=== PATIENT | male | born 1980 | race American Indian/Alaskan Native ===

== ENCOUNTER 2018-03-26 10:58 | Emergency (ER) | payer SELFPAY ==
[2018-03-26 11:02] VITALS: BP 146/97
--- NOTE | 2018-03-26 11:24 | Emergency Department Report ---
ED ENT HPI - General Chief complaint: Dental/Oral Stated complaint: DENTAL PAIN Time Seen by Provider: 03/26/18 11:14 Source: patient, family Mode of arrival: Ambulatory Limitations: No Limitations - History of Present Illness MD complaint: tooth pain Onset/Timin -: week(s) - Related Data Previous Rx's Medication Instructions Recorded Last Taken Type Acetaminophen/Codeine [Tylenol 1 tab PO Q6H PRN #14 tab 03/26/18 Unknown Rx /Codeine # 3 tab] Ibuprofen [Motrin] 600 mg PO Q8H PRN #12 tablet 03/26/18 Unknown Rx Penicillin V Potassium 500 mg PO Q8H 10 Days #30 tablet 03/26/18 Unknown Rx Allergies Allergy/AdvReac Type Severity Reaction Status Date / Time No Known Allergies Allergy Unverified 03/26/18 11:01 ED Dental HPI - General Chief complaint: Dental/Oral Stated complaint: DENTAL PAIN Time Seen by Provider: 03/26/18 11:14 Source: patient Mode of arrival: Ambulatory Limitations: No Limitations - Related Data Previous Rx's Medication Instructions Recorded Last Taken Type Acetaminophen/Codeine [Tylenol 1 tab PO Q6H PRN #14 tab 03/26/18 Unknown Rx /Codeine # 3 tab] Ibuprofen [Motrin] 600 mg PO Q8H PRN #12 tablet 03/26/18 Unknown Rx Penicillin V Potassium 500 mg PO Q8H 10 Days #30 tablet 03/26/18 Unknown Rx Allergies Allergy/AdvReac Type Severity Reaction Status Date / Time No Known Allergies Allergy Unverified 03/26/18 11:01 ED Review of Systems ROS: Stated complaint: DENTAL PAIN Other details as noted in HPI Constitutional: denies: chills, fever Eyes: eye pain. denies: eye discharge ENT: dental pain. denies: ear pain, throat pain Respiratory: denies: cough, shortness of breath, SOB with exertion, SOB at rest , stridor, wheezing Cardiovascular: denies: chest pain, palpitations, edema, syncope Gastrointestinal: denies: nausea, vomiting Genitourinary: denies: urgency, dysuria Musculoskeletal: denies: back pain, joint swelling, arthralgia Skin: denies: rash, lesions Neurological: denies: headache ED Past Medical Hx - Past Medical History Previous Medical History?: No - Surgical History Past Surgical History?: No - Family History Family history: hypertension - Social History Smoking Status: Current Every Day Smoker Substance Use Type: Alcohol, Marijuana - Medications Home Medications: Home Medications Medication Instructions Recorded Confirmed Last Taken Type Acetaminophen/Codeine [Tylenol 1 tab PO Q6H PRN #14 tab 03/26/18 Unknown Rx /Codeine # 3 tab] Ibuprofen [Motrin] 600 mg PO Q8H PRN #12 tablet 03/26/18 Unknown Rx Penicillin V Potassium 500 mg PO Q8H 10 Days #30 tablet 03/26/18 Unknown Rx ED Physical Exam - General Limitations: No Limitations General appearance: alert, in no apparent distress - Head Head exam: Present: atraumatic, normocephalic - Eye Eye exam: Present: normal appearance, PERRL, EOMI. Absent: conjunctival injection Pupils: Present: normal accommodation - ENT ENT exam: Present: normal orophraynx, mucous membranes moist, TM's normal bilaterally, normal external ear exam, other (nasal mucosa normal). Absent: normal exam - Expanded ENT Exam Expanded Ear exam: Present: normal external inspection Mouth exam: Present: normal external inspection Teeth exam: Present: dental caries, fractured tooth # (#15), dental tenderness # (#15), gingival enlargement 1 - Fractured (fracture), Dental Tenderness (left upper back tooth), Other ( left facial swelling) Throat exam: Positive: normal inspection - Neck Neck exam: Present: normal inspection, full ROM. Absent: tenderness, lymphadenopathy - Respiratory Respiratory exam: Present: normal lung sounds bilaterally. Absent: respiratory distress, chest wall tenderness - Cardiovascular Cardiovascular Exam: Present: regular rate, normal rhythm, normal heart sounds. Absent: systolic murmur, diastolic murmur - GI/Abdominal GI/Abdominal exam: Present: soft, normal bowel sounds. Absent: distended, tenderness, guarding, rigid - Extremities Exam Extremities exam: Present: normal inspection, full ROM, normal capillary refill , other (ambulates without any difficulties). Absent: tenderness, pedal edema, joint swelling, calf tenderness - Neurological Exam Neurological exam: Present: alert, oriented X3, normal gait - Psychiatric Psychiatric exam: Present: normal affect, normal mood - Skin Skin exam: Present: warm, dry, intact, normal color. Absent: rash ED Course Vital Signs 03/26/18 11:01 Temperature 98.5 F Pulse Rate 86 Respiratory 18 Rate Blood Pressure 146/97 O2 Sat by Pulse 99 Oximetry - Reevaluation(s) Reevaluation #1: 03/26/18 12:24 Clindamycin 600 mg by mouth, Motrin 800 mg by mouth and [place] 5/325 2 tablets by mouth in the emergency room. Voice relief of pain. ED Medical Decision Making - Medical Decision Making This is a 37-year-old male here report that he is having left upper back tooth pain for 2 weeks. He reports facial swelling without any fever. No other complaints he is here to be evaluated. Patient was examined by myself and found to have gingivitis, tooth #15 with partial fracture without any palpable exposure, dental caries and tenderness return to #15. Positive cellulitis to left upper back tooth at 15 for left facial swelling. Patient was given pain medication and antibiotic and this pain is present. I discussed the patient that he needs to follow-up with a dentist to correct the underlying problem. He voiced understanding. A/P Gingivitis, dental abscess-referral to dentist. Started an antibiotic clindamycin 600 mg by mouth and was sent home on penicillin Dental caries, toothache-patient given Motrin 800 mg by mouth and 5/325 mg by mouth 6 tablets emergency room with positive relief. Was sent home in Motrin and Tylenol 3 Fracture tooth #15, partial-referral to dentist Patient discharged home in stable condition with prescription for Tylenol No. 3 Motrin and penicillin V. Vital signs are stable he is afebrile and pain is controlled. Patient referred to [facility] which she is supposed to call tomorrow to schedule an appointment for follow-up visit to fix the underlying problem and 3-5 days and he voiced understanding. Discharged home with his family in stable condition. 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 ED Disposition Clinical Impression: Dental abscess, Toothache, Gingivitis, Dental caries Fracture, tooth Qualifiers: Encounter type: initial encounter Fracture type: closed Qualified Code(s): S02.5XXA - Fracture of tooth (traumatic), initial encounter for closed fracture Disposition: DC-01 TO HOME OR SELFCARE Is pt being admited?: No Does the pt Need Aspirin: No Condition: Stable Instructions: Dental Caries (ED), Dental Abscess (ED), Toothache (ED), Gingivitis (ED) Additional Instructions: Please follow up with dentist as discussed. See alternative dentist and discharge instruction paperwork if needed. Take Motrin for mild to moderate pain and please take this medication with food. Take Tylenol #3, for severe pain and please do not drive or operate heavy machinery while taking this medication. Take penicillin V as prescribed. Please see floss twice daily Gargle with Listerine mouthwash twice daily Prescriptions: Acetaminophen/Codeine [Tylenol /Codeine # 3 tab] 1 tab PO Q6H PRN #14 tab PRN Reason: moderate to severe pain Ibuprofen [Motrin] 600 mg PO Q8H PRN #12 tablet PRN Reason: Pain Penicillin V Potassium 500 mg PO Q8H 10 Days #30 tablet Referrals: PRIMARY CARE, [Primary Care Provider] - 3-5 Days [facility] [Outside] - 3-5 Days Forms: Accompanied Note, Work/School Release Form(ED)
[2018-03-26] MEDS ORDERED: NORCO 5/325 PO ONE (11:51)
[2018-03-26] MEDS ORDERED: CLEOCIN PO ONE (11:51)
[2018-03-26] MEDS ORDERED: MOTRIN PO ONE (11:51)
== END 2018-03-26 12:49 | disposition home or self-care (01) ==
LOC: ED 10:58
DX: S02.5XXA Fracture of tooth (traumatic), initial encounter for closed fracture (principal); K02.9 Dental caries, unspecified; F17.200 Nicotine dependence, unspecified, uncomplicated; F12.10 Cannabis abuse, uncomplicated; K05.00 Acute gingivitis, plaque induced; K04.7 Periapical abscess without sinus; X58.XXXA Exposure to other specified factors, initial encounter; Y93.89 Activity, other specified; Y99.8 Other external cause status; Y92.89 Other specified places as the place of occurrence of the external cause
CPT/HCPCS: 99282

== ENCOUNTER 2019-10-29 15:54 | Emergency (ER) | payer SELFPAY ==
--- NOTE | 2019-10-29 18:22 | Emergency Department Report ---
Blank Doc - Documentation Documentation: 39-year-old male that presents with abdominal pain with n/v.. This initial assessment/diagnostic orders/clinical plan/treatment(s) is/are subject to change based on patient's health status, clinical progression and re- assessment by fellow clinical providers in the ED. Further treatment and workup at subsequent clinical providers discretion. Patient/guardians urged not to elope from the ED as their condition may be serious if not clinically assessed and managed. Initial orders include: 1- Patient sent to [facility] for further evaluation and treatment 2- labs 3- UA
[2019-10-29 18:58] LABS: Bacteria,Urine 1+ /HPF (Negative); Bilirubin,Urine NEG (Negative); Blood,Urine NEG (Negative); Color,Urine Yellow (Yellow); Mucus,Urine 1+ /HPF; Protein,Urine <15 mg/dL mg/dL (Negative); Urobilinogen,Urine < 2.0 mg/dL (<2.0)
[2019-10-29 19:21] LABS: Basophils # (Auto) 0.1 K/mm3 (0.0-0.1); Basophils % (Auto) 1.4 % (0.0-1.8); Eosinophils # (Auto) 0.4 K/mm3 (0.0-0.4); Eosinophils % (Auto) 6.8 % (0.0-4.3); Hematocrit 37.5 % (35.5-45.6); Hemoglobin 12.3 gm/dl (11.8-15.2); Lymphocytes # (Auto) 2.6 K/mm3 (1.2-5.4); Lymphocytes % (Auto) 45.8 % (13.4-35.0); Mean Corpuscular HGB Conc 33 % (32-34); Mean Corpuscular Volume 89 fl (84-94); Monocytes # (Auto) 0.4 K/mm3 (0.0-0.8); Monocytes % (Auto) 6.5 % (0.0-7.3); Platelet Count 353 K/mm3 (140-440); Red Blood Count 4.24 M/mm3 (3.65-5.03); Red Cell Distribution Width 12.7 % (13.2-15.2)
[2019-10-29] MEDS ORDERED: ONDANSETRON 4 MG ODT TAB PO ONE (19:39)
[2019-10-29] MEDS ORDERED: FAMOTIDINE 20 MG TAB PO ONE (19:39)
[2019-10-29 19:45] LABS: Alanine Aminotransferase 21 units/L (7-56); Albumin 4.1 g/dL (3.9-5); BUN/Creatinine Ratio 20; Blood Urea Nitrogen 14 mg/dL (9-20); Calcium 9.2 mg/dL (8.4-10.2); Hemolysis Index 6
[2019-10-29 20:41] VITALS: BP 138/93
--- NOTE | 2019-10-29 22:06 | Emergency Department Report ---
ED N/V/D HPI - General Chief complaint: Nausea/Vomiting/Diarrhea Stated complaint: STOMACH PAIN Time Seen by Provider: 10/29/19 18:21 Source: patient Mode of arrival: Ambulatory Limitations: No Limitations - History of Present Illness Initial comments: Patient is a 39-year-old -[place] male with no past medical history who presents to the ED with acute onset persistent intermittent nausea and vomiting with diffuse body aches and pains for the last 1 week with intermittent lightheadedness. Patient also complains of lack of appetite in the last 1 week. Patient denies diarrhea, chest pain, shortness of breath, fever, chills, dysuria, cough, nasal and sinus congestion, sore throat, syncope, change in vision, headache, testicular pain or dizziness. MD complaint: nausea, abdominal pain -: Sudden, week(s) (1) Description of Vomiting: food contents Associated Abdominal Pain: No Location: diffuse Radiation: none Pain Scale: 1 Quality: dull Consistency: intermittent Improves with: none Worsens with: none Associated Symptoms: denies other symptoms, loss of appetite, malaise. denies: myalgias, chest pain, cough, diaphoresis, fever/chills, headaches, nausea/vomiting, rash, dysuria, shortness of breath, other - Related Data Previous Rx's Medication Instructions Recorded Last Taken Type Acetaminophen/Codeine [Tylenol 1 tab PO Q6H PRN #14 tab 03/26/18 Unknown Rx /Codeine # 3 tab] Ibuprofen [Motrin] 600 mg PO Q8H PRN #12 tablet 03/26/18 Unknown Rx Penicillin V Potassium 500 mg PO Q8H 10 Days #30 tablet 03/26/18 Unknown Rx Dicyclomine [Bentyl] 20 mg PO Q6H PRN #20 tablet 10/29/19 Unknown Rx Famotidine [Pepcid] 20 mg PO Q12H #24 tablet 10/29/19 Unknown Rx Ondansetron [Zofran Odt] 4 mg PO Q6HR PRN #15 tab.rapdis 10/29/19 Unknown Rx Allergies Allergy/AdvReac Type Severity Reaction Status Date / Time No Known Allergies Allergy Unverified 03/26/18 11:01 ED Review of Systems ROS: Stated complaint: STOMACH PAIN Other details as noted in HPI Constitutional: denies: chills, fever Eyes: denies: eye pain, eye discharge, vision change ENT: denies: ear pain, throat pain Respiratory: denies: cough, shortness of breath, wheezing Cardiovascular: denies: chest pain, palpitations Endocrine: no symptoms reported Gastrointestinal: nausea, vomiting. denies: abdominal pain, diarrhea Genitourinary: denies: urgency, dysuria Musculoskeletal: back pain, arthralgia, myalgia. denies: joint swelling Skin: denies: rash, lesions Neurological: denies: headache, weakness, paresthesias Psychiatric: denies: anxiety, depression Hematological/Lymphatic: denies: easy bleeding, easy bruising ED Past Medical Hx - Past Medical History Previous Medical History?: No - Surgical History Past Surgical History?: No - Social History Smoking Status: Current Every Day Smoker Substance Use Type: Alcohol, Marijuana - Medications Home Medications: Home Medications Medication Instructions Recorded Confirmed Last Taken Type Acetaminophen/Codeine [Tylenol 1 tab PO Q6H PRN #14 tab 03/26/18 Unknown Rx /Codeine # 3 tab] Ibuprofen [Motrin] 600 mg PO Q8H PRN #12 tablet 03/26/18 Unknown Rx Penicillin V Potassium 500 mg PO Q8H 10 Days #30 tablet 03/26/18 Unknown Rx Dicyclomine [Bentyl] 20 mg PO Q6H PRN #20 tablet 10/29/19 Unknown Rx Famotidine [Pepcid] 20 mg PO Q12H #24 tablet 10/29/19 Unknown Rx Ondansetron [Zofran Odt] 4 mg PO Q6HR PRN #15 tab.rapdis 10/29/19 Unknown Rx ED Physical Exam - General Limitations: No Limitations General appearance: alert, in no apparent distress - Head Head exam: Present: atraumatic, normocephalic, normal inspection - Eye Eye exam: Present: normal appearance, PERRL, EOMI Pupils: Present: normal accommodation - ENT ENT exam: Present: normal exam, normal orophraynx, mucous membranes moist, TM's normal bilaterally, normal external ear exam - Neck Neck exam: Present: normal inspection, full ROM - Respiratory Respiratory exam: Present: normal lung sounds bilaterally. Absent: respiratory distress, wheezes, rales, rhonchi, chest wall tenderness, accessory muscle use, decreased breath sounds - Cardiovascular Cardiovascular Exam: Present: regular rate, normal rhythm, normal heart sounds. Absent: systolic murmur, diastolic murmur, rubs, gallop - GI/Abdominal GI/Abdominal exam: Present: soft, normal bowel sounds. Absent: tenderness, hyperactive bowel sounds, hypoactive bowel sounds - Extremities Exam Extremities exam: Present: normal inspection, full ROM, normal capillary refill - Back Exam Back exam: Present: normal inspection, full ROM. Absent: tenderness, CVA tenderness (R), CVA tenderness (L), muscle spasm, paraspinal tenderness - Neurological Exam Neurological exam: Present: alert, oriented X3, CN II-XII intact, normal gait, reflexes normal - Psychiatric Psychiatric exam: Present: normal affect, normal mood, anxious - Skin Skin exam: Present: warm, dry, intact, normal color. Absent: rash ED Course Vital Signs 10/29/19 10/29/19 18:22 20:40 Temperature 98.6 F Pulse Rate 84 75 Respiratory 18 16 Rate Blood Pressure 112/79 Blood Pressure 138/93 [Right] O2 Sat by Pulse 100 100 Oximetry ED Medical Decision Making - Lab Data Result diagrams: 10/29/19 19:04 10/29/19 19:04 Critical care attestation.: If time is entered above; I have spent that time in minutes in the direct care of this critically ill patient, excluding procedure time. ED Disposition Clinical Impression: Nausea and vomiting in adult, Viral gastroenteritis GERD (gastroesophageal reflux disease) Qualifiers: Esophagitis presence: without esophagitis Qualified Code(s): K21.9 - Gastro- esophageal reflux disease without esophagitis Disposition: - TO HOME OR SELFCARE Is pt being admited?: No Does the pt Need Aspirin: No Condition: Stable Instructions: Gastroenteritis (ED), Acute Nausea and Vomiting (ED) Additional Instructions: Your lab test results are unremarkable with normal findings. Your symptoms are likely due to viral gastroenteritis or GERD. Therefore take medication as needed with food, drink plenty of fluids and follow-up with your primary care physician in 5 to 7 days for reevaluation or return to the ED immediately if symptoms get worse. Prescriptions: Dicyclomine [Bentyl] 20 mg PO Q6H PRN #20 tablet PRN Reason: Pain , Severe (7-10) Famotidine [Pepcid] 20 mg PO Q12H #24 tablet Ondansetron [Zofran Odt] 4 mg PO Q6HR PRN #15 tab.rapdis PRN Reason: Nausea Referrals: [facility] [Outside] - 3-5 Days Time of Disposition: 22:03 Print Language: BOLIVIAN
== END 2019-10-29 22:15 | disposition home or self-care (01) ==
LOC: ED 15:54
DX: K21.9 Gastro-esophageal reflux disease without esophagitis (principal); A08.4 Viral intestinal infection, unspecified; F17.200 Nicotine dependence, unspecified, uncomplicated; F12.10 Cannabis abuse, uncomplicated; Z79.1 Long term (current) use of non-steroidal anti-inflammatories (NSAID); Z79.2 Long term (current) use of antibiotics; Z79.899 Other long term (current) drug therapy
CPT/HCPCS: 36415; 80053; 81001; 83690; 85025; Q0162

== ENCOUNTER 2020-07-26 19:57 | Emergency (ER) | payer SELFPAY ==
[2020-07-26 20:19] VITALS: BP 134/84
[2020-07-26 20:59] LABS: BUN/Creatinine Ratio 14; Blood Urea Nitrogen 15 mg/dL (9-20); Calcium 9.7 mg/dL (8.4-10.2); Hemolysis Index 10
[2020-07-26 21:00] LABS: Basophils # (Auto) 0.1 K/mm3 (0.0-0.1); Basophils % (Auto) 1.2 % (0.0-1.8); Eosinophils # (Auto) 0.1 K/mm3 (0.0-0.4); Eosinophils % (Auto) 1.6 % (0.0-4.3); Hematocrit 43.3 % (35.5-45.6); Lymphocytes % (Auto) 33.9 % (13.4-35.0); Mean Corpuscular HGB Conc 32 % (32-34); Mean Corpuscular Volume 87 fl (84-94); Monocytes # (Auto) 0.6 K/mm3 (0.0-0.8); Monocytes % (Auto) 10.1 % (0.0-7.3); Platelet Count 326 K/mm3 (140-440); Red Cell Distribution Width 13.9 % (13.2-15.2)
[2020-07-26 21:40] LABS: Bilirubin,Urine NEG (Negative); Blood,Urine NEG (Negative); Color,Urine Amber (Yellow); Hyaline Casts,Urine 4 /LPF; Mucus,Urine 3+ /HPF
[2020-07-26 21:43] LABS: Benzodiazepines Screen,Urine Negative; Cocaine Screen,Urine Negative; Methadone Screen,Urine Negative; Opiate Screen,Urine Negative
--- NOTE | 2020-07-26 21:48 | Emergency Department Report ---
ED Psych HPI - General Chief Complaint: Psych Stated Complaint: PARANOIA Time Seen by Provider: 07/26/20 20:12 Source: patient, EMS Mode of arrival: Stretcher - History of Present Illness Initial Comments: Patient is a 40-year-old F [place] male who likely has undiagnosed schizo phrenia who is presenting with paranoia. Patient states he was at a hotel and feels as though people were trying to break in to kill him. He states they were calling his name. I asked the patient if he knew these men he states they were strangers. I then asked him how would they and have known his name he was unable to answer this question. Patient does admit to using crystal meth and ecstasy in the last several days. He has no homicidal suicidal ideations. - Related Data Previous Rx's Medication Instructions Recorded Last Taken Type Acetaminophen/Codeine [Tylenol 1 tab PO Q6H PRN #14 tab 03/26/18 Unknown Rx /Codeine # 3 tab] Ibuprofen [Motrin] 600 mg PO Q8H PRN #12 tablet 03/26/18 Unknown Rx Penicillin V Potassium 500 mg PO Q8H 10 Days #30 tablet 03/26/18 Unknown Rx Dicyclomine [Bentyl] 20 mg PO Q6H PRN #20 tablet 10/29/19 Unknown Rx Famotidine [Pepcid] 20 mg PO Q12H #24 tablet 10/29/19 Unknown Rx Ondansetron [Zofran Odt] 4 mg PO Q6HR PRN #15 tab.rapdis 10/29/19 Unknown Rx Allergies Allergy/AdvReac Type Severity Reaction Status Date / Time No Known Allergies Allergy Unverified 03/26/18 11:01 ED Review of Systems ROS: Stated complaint: PARANOIA Other details as noted in HPI Comment: All other systems reviewed and negative ED Past Medical Hx - Past Medical History Previous Medical History?: No - Surgical History Past Surgical History?: No - Social History Smoking Status: Current Every Day Smoker - Medications Home Medications: Home Medications Medication Instructions Recorded Confirmed Last Taken Type Acetaminophen/Codeine [Tylenol 1 tab PO Q6H PRN #14 tab 03/26/18 Unknown Rx /Codeine # 3 tab] Ibuprofen [Motrin] 600 mg PO Q8H PRN #12 tablet 03/26/18 Unknown Rx Penicillin V Potassium 500 mg PO Q8H 10 Days #30 tablet 03/26/18 Unknown Rx Dicyclomine [Bentyl] 20 mg PO Q6H PRN #20 tablet 10/29/19 Unknown Rx Famotidine [Pepcid] 20 mg PO Q12H #24 tablet 10/29/19 Unknown Rx Ondansetron [Zofran Odt] 4 mg PO Q6HR PRN #15 tab.rapdis 10/29/19 Unknown Rx ED Physical Exam - General Limitations: No Limitations General appearance: alert, in no apparent distress - Head Head exam: Present: atraumatic, normocephalic - Eye Eye exam: Present: normal appearance - ENT ENT exam: Present: mucous membranes moist - Neck Neck exam: Present: normal inspection - Respiratory Respiratory exam: Present: normal lung sounds bilaterally. Absent: respiratory distress, wheezes, rales, rhonchi - Cardiovascular Cardiovascular Exam: Present: regular rate, normal rhythm. Absent: systolic murmur, diastolic murmur, rubs, gallop - GI/Abdominal GI/Abdominal exam: Present: soft, normal bowel sounds - Rectal Rectal exam: Present: deferred - Extremities Exam Extremities exam: Present: normal inspection - Back Exam Back exam: Present: normal inspection - Neurological Exam Neurological exam: Present: alert, oriented X3 - Psychiatric Psychiatric exam: Present: normal affect, normal mood, other (Paranoia) - Skin Skin exam: Present: warm, dry, intact, normal color. Absent: rash ED Course Vital Signs 07/26/20 07/26/20 20:00 20:16 Temperature 97.7 F Pulse Rate 102 H Respiratory 20 18 Rate Blood Pressure 134/84 O2 Sat by Pulse 99 99 Oximetry ED Medical Decision Making - Lab Data Result diagrams: 07/26/20 20:21 07/26/20 20:21 - Medical Decision Making Spoke with our mental health multi township assessor and they do not believe that the patient is meeting any criteria for acute inpatient stabilization at this time. He has a single delusion and states that he will just go to a different hotel. Also explained to the patient that his polysubstance abuse is likely the cause and patient was given outpatient drug rehab facilities for follow-up. Critical care attestation.: If time is entered above; I have spent that time in minutes in the direct care of this critically ill patient, excluding procedure time. ED Disposition Clinical Impression: Paranoid delusion, Polysubstance abuse Disposition: DC-01 TO HOME OR SELFCARE Is pt being admited?: No Does the pt Need Aspirin: No Condition: Stable Instructions: Substance Use Disorder and Mental Illness Additional Instructions: [place] Crisis and Access Line: Number: Crisis Text Line: (Text START) Number: 193722 Suicide Prevention Line: Number: Emergency Number: 911 SUBSTANCE ABUSE PROGRAMS: [facility]: Location: [place], [place] [employer] Address: [address] [place] [address] [facility]: Address: [address] [place] [address] [facility]: Address: [address] [place] [address] [facility]: Address: [address] [place] [address] [facility] Address: [address] [place] [id number]. Please contact above numbers to attempt placement into free based program. Medicaid Programs: [facility]: Address: [address] [place] [address] [facility]: Address: [address] [place] [id number] Referrals: PRIMARY CARE, [Primary Care Provider] - 3-5 Days Time of Disposition: 21:48
[2020-07-26 22:01] LABS: Amphetamine Screen,Urine Positive; Cannabinoid Screen,Urine Positive
== END 2020-07-26 22:30 | disposition home or self-care (01) ==
LOC: ED 19:57
DX: F22 Delusional disorders (principal); Z79.899 Other long term (current) drug therapy
CPT/HCPCS: 36415; 80048; 80307; 80320; 81001; 85025; G0480

== ENCOUNTER 2020-07-29 02:06 | Emergency (ER) | payer SELFPAY ==
[2020-07-29 03:02] VITALS: BP 142/95
== END 2020-07-29 14:25 | disposition left against medical advice (07) ==
LOC: ED 02:06
DX: Z00.8 Encounter for other general examination (principal); Z53.21 Procedure and treatment not carried out due to patient leaving prior to being seen by health care provider